=== PATIENT | female | born 1970 | race Two or more races ===

== ENCOUNTER 2018-05-20 04:04 | Inpatient (IN) | payer BC ==
[~2018-05-20] VITALS: Ht 172.7 cm; Wt 68.5 kg
[2018-05-20] MEDS ORDERED: IV NS 0.9% 1,000 ML BAG IV ONE (04:30)
[2018-05-20] MEDS ORDERED: ONDANSETRON HCL/PF 4 MG/2 ML VIAL IVP ONE (04:30)
[2018-05-20] MEDS ORDERED: ONDANSETRON HCL/PF 4 MG/2 ML VIAL ONE ×2 (04:38→05:30)
[2018-05-20 04:43] LABS: BASOPHILS # (AUTO) 0.1 /CMM (0.0-0.2); BASOPHILS % (AUTO) 0.8 % (0.0-2.0); EOSINOPHILS % (AUTO) 0.3 % (0.0-6.0); HEMATOCRIT 40 % (33-45); HEMOGLOBIN 13.5 g/dL (11.5-14.8); LYMPHOCYTES # (AUTO) 2.4 /CMM (0.8-4.8); LYMPHOCYTES % (AUTO) 19.2 % (20.0-44.0); MEAN CORPUSCULAR HGB CONC 34 g/dl (31.0-36.0); MEAN CORPUSCULAR VOLUME 100 fL (82-100); MONOCYTES # (AUTO) 0.6 /CMM (0.1-1.30); MONOCYTES % (AUTO) 5.2 % (2.0-12.0); NEUTROPHILS # (AUTO) 9.1 /CMM (1.8-8.9); NEUTROPHILS % (AUTO) 74.5 % (43.0-81.0); PLATELET COUNT (AUTO) 601 /CMM (150-450); RED BLOOD CELL COUNT(AUTO) 3.96 MIL/uL (4.0-5.2); WHITE BLOOD COUNT (AUTO) 12.2 K/uL (4.3-11.0)
--- NOTE | 2018-05-20 04:45 | NUR ---
BIB EMT, COMPLAINING OF N/V. NO EMESIS NOTED. NO RESPIRATORY DISTRESS. PT PLACED ON TELE MONITOR AND SPO2 MONITORING.
[2018-05-20 04:48] LABS: CALCIUM, SERUM 10.5 mg/dL (8.5-10.1); CARBON DIOXIDE 18 mmol/L (21-32); CHLORIDE 97 mmol/L (98-107); CREATININE 1.2 mg/dL (0.6-1.3); GLUCOSE 211 mg/dL (74-106); POTASSIUM 2.9 mmol/L (3.5-5.1); SODIUM SERUM 137 mmol/L (136-145); UREA NITROGEN, BLOOD 13 mg/dL (7-18)
[2018-05-20 04:53] LABS: ALANINE AMINOTRANSFERASE 26 U/L (12-78); ALBUMIN 4.5 g/dL (3.4-5.0); ALKALINE PHOSPHATASE 82 U/L (46-116); ASPARTATE AMINOTRANSFERASE 18 U/L (15-37); BILIRUBIN,DIRECT 0.1 mg/dL (0.0-0.2); BILIRUBIN,TOTAL 0.4 mg/dL (0.2-1.0); LIPASE 115 U/L (73-393); TOTAL PROTEIN, SERUM 7.9 g/dL (6.4-8.2)
--- NOTE | 2018-05-20 04:55 | NUR ---
PT TAKEN TO CT SCAN
--- NOTE | 2018-05-20 05:32 | NUR ---
PT COMPLAINING STILL OF NAUSEA. PER DR VERBAL ORDER, REPEAT ANOTHER DOSE OF ZOFRAN. 4MG, IVP
--- NOTE | 2018-05-20 05:42 | NUR ---
URINE COLLECTED AND SENT TO LAB
[2018-05-20 05:49] LABS: APPEARANCE,URINE Cloudy (CLEAR); BILIRUBIN,URINE Negative (NEGATIVE); BLOOD, URINE Negative Ery/uL (NEGATIVE); COLOR,URINE Yellow (YELLOW); KETONES,URINE >=160 (NEGATIVE); LEUKOCYTE ESTERASE ,URINE Negative (NEGATIVE); NITRITE, URINE Negative (NEGATIVE); PH,URINE 8.5 (5.0-8.0); PROTEIN,URINE 30 mg/dl (NEGATIVE); UGLUCOSE Negative (NEGATIVE); UROBILINOGEN,URINE 0.2 EU/dL (0.2)
[2018-05-20] MEDS ORDERED: ONDANSETRON HCL/PF 4 MG/2 ML VIAL IV ONE (06:00)
[2018-05-20] MEDS ORDERED: POTASSIUM CHLORIDE 10 MEQ/50 ML PREMIXED IVPB FOR PERIPHERAL LINE IV ONE (06:00)
--- NOTE | 2018-05-20 06:00 | NUR ---
NGT INSERTED PER DR ORDERS. PLACEMENT VERIFIED BY 2 RN, GASTRIC JUICE COMING OUT UPON SUCTION, AND GURGLING SOUND DURING AUSCULTATION UPON INTRODUCING AIR TO THE STOMACH.
[2018-05-20] MEDS ORDERED: POTASSIUM CL. PREMIX PERIPHER. 50 ML ONE (06:11)
[2018-05-20 06:21] LABS: BACTERIA,URINE Moderate /HPF (None Seen); RBC,URINE 0-2 /HPF (0-2); SQUAMOUS EPITHELIAL CELL,UR Moderate /HPF (None Seen); WBC,URINE 0-2 /HPF (0-3)
--- NOTE | 2018-05-20 06:29 | NUR ---
PT ENDORSED TO GEOF RN. ENDORSED ABOUT POTASSIUM 3 MORE BAGS OF 10MEQ/50ML IV NEEDS TO BE GIVEN.
[2018-05-20] MEDS ORDERED: POTASSIUM CL. PREMIX PERIPHER. 150 ML ONE (06:41)
--- NOTE | 2018-05-20 06:44 | NUR ---
PT TRANSFERRED TO 115-1 VIA ACLS PROTOCOL. 3 10MEQ/50ML POTASSIUM BAG GIVEN TO ISABEL BLACK FOR POTASSIUM REPLACEMENT. FIRST BAG OF POTASSIUM INFUSING DURING TRASNFER.
[2018-05-20 06:59] VITALS: BP 127/82
[2018-05-20] MEDS ORDERED: MORPHINE SULFATE INJ 2 MG/ML DISP.SYRIN IV PRN (07:00)
[2018-05-20] MEDS ORDERED: ONDANSETRON HCL/PF 4 MG/2 ML VIAL IVP PRN (07:00)
[2018-05-20] MEDS ORDERED: ACETAMINOPHEN 650 MG/SUPP.RECT RC PRN (07:00)
[2018-05-20] MEDS ORDERED: MULT-24 PO (07:45)
[2018-05-20] MEDS ORDERED: HYDR50CA5 PO (07:45)
[2018-05-20] MEDS ORDERED: MELA5TAB PO (07:45)
[2018-05-20] MEDS ORDERED: TRAZ-213 PO (07:45)
[2018-05-20 08:00] VITALS: BP 114/67
[2018-05-20] MEDS: PANTOPRAZOLE 40 MG VIAL IV SCH (08:28)
[2018-05-20] MEDS: PIPERACILLIN /TAZOBACTAM 3.375 G in IV D5W 100 ML IV SCH ×2 (08:28→18:05)
[2018-05-20] MEDS: Potassium Chloride 20 MEQ in IV D5/0.45 NACL 1,000 ML IV PRN (08:29)
[2018-05-20] MEDS ORDERED: PIPERACILLIN /TAZOBACTAM 3.375 G in IV D5W 50 ML IV SCH (09:00)
[2018-05-20] MEDS ORDERED: DIATR MEGLU/DIATRIZOATE SODIUM 120 ML BOTTLE (GASTROGRAPHIN) ONE (15:30)
[2018-05-20 17:30] VITALS: BP 107/65
--- NOTE | 2018-05-20 19:35 | NUR ---
RN OPENING NOTES RECEIVED REPORT FROM MUNA RN. FOUND Pt AWAKE, RESTING IN BED. NO S/S OF ACUTE DISTRESS OR SOB NOTED. Pt IS A/OX4, VERBAL, ABLE TO MAKE NEEDS KNOWN. NO C/O PAIN AT THIS TIME. Pt HAS BEEN ADVANCED TO A CLEAR LIQUID DIET. IV ACCESS ON R HAND #20G & L WRIST #20G. Pt ON KCL 20MEQ IN D5 1/2NS IVF. SAFETY MEASURES IN PLACE. BED LOW, LOCKED, HOB ELEVATED, SIDE RAILS UP, CALL LIGHT AND BEDSIDE TABLE WITHIN REACH. WILL CONTINUE TO MONITOR Pt's CONDITION AND SAFETY THROUGHOUT THE NIGHT.
[2018-05-21] VITALS: BP 100/60
[2018-05-21] MEDS ORDERED: TRAZODONE 50 MG TABLET PO PRN (00:30)
[2018-05-21] MEDS ORDERED: LORAZEPAM INJ 2 MG/ML VIAL IV PRN (00:30)
[2018-05-21] MEDS: PIPERACILLIN /TAZOBACTAM 3.375 G in IV D5W 100 ML IV SCH ×2 (00:43→08:34)
[2018-05-21] MEDS: Potassium Chloride 20 MEQ in IV D5/0.45 NACL 1,000 ML IV PRN (02:33)
--- NOTE | 2018-05-21 06:48 | NUR ---
RN CLOSING NOTES NO SIGNIFICANT CHANGES IN Pt's CONDITION. Pt REMAINS STABLE AT THIS TIME. NO S/S OF ACUTE DISTRESS OR SOB NOTED DURING THE NIGHT. Pt IS RESTING IN BED. RESPIRATIONS EVEN AND UNLABORED. SAFETY MEASURES IN PLACE. BED LOW, LOCKED, HOB ELEVATED, SIDE RAILS UP, CALL LIGHT AND BEDSIDE TABLE WITHIN REACH. WILL ENDORSE TO DAYSHIFT RN FOR Pt's JACOB.
[2018-05-21 07:01] LABS: BASOPHILS % (AUTO) 0.4 % (0.0-2.0); EOSINOPHILS % (AUTO) 1.3 % (0.0-6.0); HEMATOCRIT 35 % (33-45); HEMOGLOBIN 11.9 g/dL (11.5-14.8); LYMPHOCYTES # (AUTO) 1.4 /CMM (0.8-4.8); LYMPHOCYTES % (AUTO) 24.7 % (20.0-44.0); MEAN CORPUSCULAR HGB CONC 34 g/dl (31.0-36.0); MEAN CORPUSCULAR VOLUME 101 fL (82-100); MONOCYTES # (AUTO) 0.5 /CMM (0.1-1.30); MONOCYTES % (AUTO) 8.5 % (2.0-12.0); NEUTROPHILS # (AUTO) 3.7 /CMM (1.8-8.9); NEUTROPHILS % (AUTO) 65.1 % (43.0-81.0); PLATELET COUNT (AUTO) 443 /CMM (150-450); RED BLOOD CELL COUNT(AUTO) 3.46 MIL/uL (4.0-5.2); WHITE BLOOD COUNT (AUTO) 5.7 K/uL (4.3-11.0)
[2018-05-21 07:13] LABS: CALCIUM, SERUM 8.4 mg/dL (8.5-10.1); CREATININE 0.9 mg/dL (0.6-1.3); PHOSPHORUS 3.1 mg/dL (2.5-4.9); POTASSIUM 3.7 mmol/L (3.5-5.1)
--- NOTE | 2018-05-21 07:15 | NUR ---
RN OPENING NOTE RECEIVED PATIENT IN BED ASLEEP BUT EASILY AROUSABLE. NO COMPLAINS OF PAIN OR ANY SOB. ON ROOM AIR. ALERT AND ORIENTED X4. HAS NGT FOR SUCTIONING PLACED, BUT HAS AN ORDER FOR CLEAR LIQUID DIET. PER NOC SHIFT, PATIENT DID NOT EXPERIENCE ANY NAUSEA AND VOMITING LAST NIGHT. WILL LET MD AWARE. HAS A LEFT WRIST #20 WITH KCL IN D5 1/2 NS RUNNING AT 80ML/HR. BED LOCKED AND IN LOWEST POSITION. CALL LIGHT WITHIN REACH. WILL CONTINUE TO MONITOR CLOSELY
[2018-05-21 08:00] VITALS: BP 97/54
[2018-05-21] MEDS: PANTOPRAZOLE 40 MG VIAL IV SCH (08:34)
[2018-05-21 09:00] VITALS: BP 97/54
[2018-05-21] MEDS ORDERED: IV D5/0.45 NACL 1,000 ML IV PRN (12:00)
--- NOTE | 2018-05-21 13:57 | NUR ---
RN NOTE CALLED RADIOLOGY DEPT TO FOLLOW UP SMALL BOWEL XRAY RESULTS. THEY GAVE ME THE NUMBER OF THE ONE IN CHARGE TO DICTATE THE RESULTS. CALLED THEM AND THEY SAID THEY WILL DICTATE JOSEPH. SBFT WAS NEGATIVE. NAT ANDREW MADE AWARE. ORDERED TO DC THE NGT AND CHANGED DIET TO SOFT. ALSO, POTASSIUM WAS 3.7. ANA ANDREW MADE AWARE AND ORDERED TO DC THE KCL IN D5 HALF NS TO JUST REGULAR D5 HALF NS. PATIENT AWARE.
--- NOTE | 2018-05-21 15:55 | NUR ---
RN NOTE ANA ANDREW ORDERED DISCHARGE FOR THE PATIENT. PATIENT AWARE AND HER TRANSPORT HAS BEEN ARRANGED. SHE WILL BE GOING BACK TO [facility] AT [place]. EDUCATED THE PATIENT REGARDING HER SOFT DIET. GAVE HER READING MATERIALS ABOUT HER DISCHARGE. EXIT PACKET ALREADY DONE. STILL WAITING FOR HER RIDE TO GO HOME
[2018-05-21 16:00] VITALS: BP 107/67
--- NOTE | 2018-05-21 16:32 | NUR ---
CLAIMS SUPPORT SPECIALIST NOTE [facility]. PATIENT STABLE, NO COMPLAINS OF ANY PAIN OR ANY DISTRESS. EDUCATED ABOUT WHAT TO DO AFTER DC. KNOWS SHE NEEDS TO FOLLOW UP WITH GI DOCTOR IN 1-2 WEEKS.
== END 2018-05-21 16:30 | DRG 390 ==
LOC: ER 04:07 → EDBD 06:06 → MEDSG1 06:06
PROVIDERS: ADMIT Registered Nurse; ATTEND Registered Nurse
DX: K56.600 Partial intestinal obstruction, unspecified as to cause (principal); E86.0 Dehydration; D72.829 Elevated white blood cell count, unspecified; E87.6 Hypokalemia; K59.00 Constipation, unspecified; F19.10 Other psychoactive substance abuse, uncomplicated; M51.37 Other intervertebral disc degeneration, lumbosacral region
CPT/HCPCS: 36415; 71045-TC; 74250-TC; 80048-TC; 80076-TC; 81000-TC; 83690-TC; 83735-TC; 84100-TC; 84132-TC; 84443-TC; 84484-TC; 84703-TC; 85025-TC; 87081-TC; 87086-TC; C9113; G0378; J2060; J2405; J2543; J3480; J3490; J7060; Q9963